=== PATIENT | male | born 1965 | race Caucasian/White ===

== ENCOUNTER 2022-10-25 00:21 | Day surgery (SDC) | payer BC, SELFPAY ==
[2022-10-16 09:40] VITALS: BMI 34.9
--- NOTE | 2022-10-25 07:44 | WPDANESEPPF ---
Anes - Initial Pre Proc Eval Procedure: Operation Date: 10/25/22 09:30 Proposed Procedures p Screening Colonoscopy - Tomy Mcclendon MD Date/Time: 10/25/22 07:44 Surgeon: Tomy Mcclendon MD Pre Op Diagnosis: neoplasm screening Patient Data Age: 56 Gender: M Height: 1.8 m Weight: 113.8 kg Allergies Allergy/AdvReac Type Severity Reaction Status Date / Time No Known Allergies Allergy Mild Verified 10/16/22 09:35 Home Medications Medication Instructions Recorded Confirmed Type blood sugar diagnostic (Contour #10 ea 08/23/19 08/05/22 History Next Test Strips) glipizide 10 mg tablet, extended 10 mg PO BID #180 tabs 02/05/22 10/16/22 Rx release 24 hr lisinopril 20 1 tablet PO DAILY #30 tabs 06/14/22 10/16/22 Rx mg-hydrochlorothiazide 12.5 mg tablet metformin 500 mg tablet,extended 1,000 mg PO DAILY #180 tabs 08/08/22 10/16/22 Rx release 24 hr simvastatin 20 mg tablet 20 mg PO QHS #90 tabs 09/04/22 10/16/22 Rx Patient hx anesthesia problems: none Family hx anesthesia problems: none Results Review: All pre-operative results and documents have been reviewed as part of the pre-operative evaluation. [facility] Past Medical History Medical History (Updated 10/25/22 @ 07:46 by Mednoza Almanza MD) CAD (coronary artery disease) Dyslipidemia Essential (primary) hypertension History of COVID-19 05/2020 Hx of myocardial infarction Hyperlipidemia Obesity Type 2 diabetes mellitus without complication, without long-term current use of insulin Vitamin D deficiency Surgical History Surgical History History of ankle surgery (~1980) 1980s - ORIF for right ankle fracture Family History Family History Other Family history of coronary artery disease Hypertension Social History Social History Smoking status: Never smoker Alcohol intake: current Alcohol use details: 1 drink monthly Substance use: never Substance use type: does not use Lack of Transportation: No Lack of Food: Never True Current Housing: I Have Housing Concerned About Future Housing: No Difficulty Paying Gas/Electric Bills: No Difficulty Paying for Meds: No Currently Unemployed: No Education: High School Diploma/GED Difficulty w/ Childcare or Family Care: No Living arrangements: with family Additional living arrangements comments: Son(Raheem) Occupation/Education: occupation Gender identity (if verbalized by the patient): Male Sexual Orientation (if Verbalized by the Patient): Straight or Heterosexual Spiritual care concerns: No Anes - Eval Final PreProcedure Day of Procedure 10/25/22 07:44 Patient weight: obese Heart: regular rate and rhythm Lungs: clear to auscultation and normal air movement Airway: Mallampati scale class II Neurological: alert and oriented Last oral intake: >/= 8 hours ASA classification: III Emergent: no Anesthetic plan: proceed Anesthesia type and monitoring: general GIVS Results Review: All pre-operative results and documents have been reviewed as part of the pre-operative evaluation. Informed Consent: The patient's anesthetic plan and its attendant risks and benefits were discussed with the patient/family/POA. Questions were solicited and answers provided to the satisfaction of the patient/family/POA.
[2022-10-25 08:38] VITALS: BP 184/95; PULSE 90; RESP 20; TEMP 36.1; O2SAT 99; BMI 30.8
[2022-10-25] MEDS: LACTATED RINGERS 1,000 ML 150 ML IV CONT (08:50)
[2022-10-25 08:52] LABS: Glucose Point of Care 139 mg/dl (65-105)
[2022-10-25 08:54] VITALS: BP 169/85
--- NOTE | 2022-10-25 08:58 | PM.HPGS ---
History of Present Illness History of Present Illness Consent: Risks, benefits, and alternatives have been discussed and questions answered. Patient agrees to proceed with procedure. Chief complaint: neoplasm screening Narrative: Doe Veliz III is a 56 year old male here for first screening colonoscopy Review of Systems Constitutional: Constitutional: Denies headache(s) and Denies weakness Eyes: Eyes: Denies blurry vision ENT: Reports Normal hearing present, Denies headache(s) and Denies neck pain Cardiovascular: Cardiovascular: Denies chest pain and Denies dyspnea Respiratory: Respiratory: Denies dyspnea Gastrointestinal: Gastrointestinal: Reports no additional gastrointestinal complaints Genitourinary: Genitourinary: Denies dysuria Musculoskeletal: Musculoskeletal: Denies neck pain Integumentary/Breasts: Skin/Breast: Denies dry skin Neurologic: Reports Normal hearing present, Denies headache(s) and Denies weakness Psychiatric: Psychiatric: Denies anxiety Endocrine: Endocrine: Denies change in body appearance Hematologic/Lymphatic: Hematologic/Lymphatic: Denies easy bleeding Allergic/Immunologic: Allergic/Immunologic: Denies urticaria [facility] Past Medical History Medical History (Updated 10/25/22 @ 08:58 by Tomy Mcclendon MD) CAD (coronary artery disease) Colon cancer screening Diabetes Dyslipidemia Essential (primary) hypertension History of COVID-19 05/2020 Hx of myocardial infarction Hyperlipidemia Obesity Type 2 diabetes mellitus without complication, without long-term current use of insulin Vitamin D deficiency Surgical History Surgical History History of ankle surgery (~1980) 1980s - ORIF for right ankle fracture Family History Family History Other Family history of coronary artery disease Hypertension Social History Social History Smoking status: Never smoker Alcohol intake: current Alcohol use details: 1 drink monthly Substance use: never Substance use type: does not use Lack of Transportation: No Lack of Food: Never True Current Housing: I Have Housing Concerned About Future Housing: No Difficulty Paying Gas/Electric Bills: No Difficulty Paying for Meds: No Currently Unemployed: No Education: High School Diploma/GED Difficulty w/ Childcare or Family Care: No Living arrangements: with family Additional living arrangements comments: Son(Raheem) Occupation/Education: occupation Gender identity (if verbalized by the patient): Male Sexual Orientation (if Verbalized by the Patient): Straight or Heterosexual Spiritual care concerns: No Meds Home Medications and Allergies Home Medications Medication Instructions Recorded Confirmed Type blood sugar diagnostic (Contour #10 ea 08/23/19 10/25/22 History Next Test Strips) glipizide 10 mg tablet, extended 10 mg PO BID #180 tabs 02/05/22 10/25/22 Rx release 24 hr lisinopril 20 1 tablet PO DAILY #30 tabs 06/14/22 10/25/22 Rx mg-hydrochlorothiazide 12.5 mg tablet metformin 500 mg tablet,extended 1,000 mg PO DAILY #180 tabs 08/08/22 10/25/22 Rx release 24 hr simvastatin 20 mg tablet 20 mg PO QHS #90 tabs 09/04/22 10/25/22 Rx Allergies Allergy/AdvReac Type Severity Reaction Status Date / Time No Known Allergies Allergy Mild Verified 10/25/22 08:36 Vital Signs Vital Signs - 24 hr 10/25/22 08:38 10/25/22 08:54 Temperature 97 F L Pulse Rate 90 Respiratory Rate 20 Blood Pressure 184/95 H 169/85 H Pulse Oximetry 99 Oxygen Delivery Room Air Exam Const: General: comfortable and no acute distress HENMT: Face/Nose/Sinus: Normal nares present Eyes: General: appearance normal, both eyes and all related structures Neck: Neck: no JVD Resp: Auscultation: chay
[2022-10-25 09:21] VITALS: BP 115/78; PULSE 98; RESP 22; O2SAT 97
[2022-10-25 09:31] VITALS: BP 113/78; PULSE 95; RESP 24; O2SAT 98
[2022-10-25 09:39] VITALS: BP 123/84; PULSE 86; RESP 17; O2SAT 99
== END 2022-10-25 09:55 | disposition home or self-care (01) ==
PROVIDERS: PCP Family Medicine; Visit Provider Internal Medicine Gastroenterology
PROC: 0DJD8ZZ Inspection of Lower Intestinal Tract, Via Natural or Artificial Opening Endoscopic (ICD-10-PCS; CPT 45378; principal; 2022-10-25 09:30)
DX: Z12.11 Encounter for screening for malignant neoplasm of colon (principal); D12.3 Benign neoplasm of transverse colon; K57.30 Diverticulosis of large intestine without perforation or abscess without bleeding; K64.8 Other hemorrhoids; I25.10 Atherosclerotic heart disease of native coronary artery without angina pectoris; E11.9 Type 2 diabetes mellitus without complications; E78.5 Hyperlipidemia, unspecified; I10 Essential (primary) hypertension; I25.2 Old myocardial infarction; Z68.30 Body mass index [BMI] 30.0-30.9, adult; Z79.84 Long term (current) use of oral hypoglycemic drugs
CPT/HCPCS: 45385; 82948; 88305; J2704; J7120